=== PATIENT | male | born 2000 | race Hispanic/Latino ===

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

== ENCOUNTER 2021-01-25 17:32 | Emergency (ER) | payer SELFPAY ==
[~2021-01-25] VITALS: Ht 190.5 cm; Wt 100.0 kg
[2021-01-25 18:22] LABS: MEAN CORPUSCULAR HGB 27.9 pG CALC (26.0-32.0); MEAN CORPUSCULAR HGB CONC 33.1 g/dL CAL (32.0-36.0); NEUT# 3.54 thou/uL (1.82-7.42); RED BLOOD COUNT 5.31 mill/uL (4.70-6.10); RED CELL DISTRI WIDTH 12.8 % (11.5-15.5)
[2021-01-25 18:24] LABS: HEMATOCRIT 44.7 % (39.0-50.0); HEMOGLOBIN 14.8 g/dl (14.0-18.0); MEAN CELL VOLUME 84.2 fL CALC (80.0-100.0)
[2021-01-25 18:48] LABS: URINE BILIRUBIN - DIPSTICK NEGATIVE (NEGATIVE); URINE BLOOD DIPSTICK NEGATIVE (NEGATIVE); URINE COLOR YELLOW; URINE GLUCOSE - DIPSTICK NEGATIVE (NEGATIVE); URINE KETONE NEGATIVE (NEGATIVE); URINE LEUK ESTERASE NEGATIVE (NEGATIVE); URINE PH 5.5 (4.5-8.0); URINE PROTEIN - DIPSTICK NEGATIVE (NEG-TRACE); URINE UROBILINOGEN - DIPSTICK 0.2 E.U./dL (0.2)
[2021-01-25 18:48] LABS: ALBUMIN 4.5 g/dL (3.2-5.0); ALKALINE PHOSPHATASE 98 u/l (38-126); ANION GAP 15 (6-22 (CALC)); BILIRUBIN, TOTAL 0.3 mg/dL (0.0-1.4); BUN 9 mg/dL (9-20); BUN/CREATININE RATIO 15 (12-20 (CALC)); CARBON DIOXIDE 24 mmol/l (22-30); CHLORIDE 107 mmol/l (95-108); CREATININE 0.6 mg/dL (0.7-1.3); ETHYL ALCOHOL 177 mg/dl (0-30); GFR > 60 ML/MIN (>=60 (CALC)); GFR FOR AFR.AMER. > 60 ML/MIN (>=60 (CALC)); POTASSIUM 4.2 mmol/l (3.5-5.1); SGOT/AST 26 u/l (17-59); SODIUM 141 mmol/l (137-146); TOTAL PROTEIN 8.1 g/dL (6.3-8.2)
[2021-01-25 18:49] LABS: URINE NITRITE - DIPSTICK NEGATIVE (Negative)
[2021-01-25 20:00] VITALS: BP 126/76
== END 2021-01-25 20:00 | disposition designated cancer center or children's hospital (05) | DRG 605 ==
LOC: ED 17:32
PROVIDERS: Emergency Medicine
DX: S51.812A Laceration without foreign body of left forearm, initial encounter (principal); S71.112A Laceration without foreign body, left thigh, initial encounter; F32.9 Major depressive disorder, single episode, unspecified; X78.1XXA Intentional self-harm by knife, initial encounter; Y92.009 Unspecified place in unspecified non-institutional (private) residence as the place of occurrence of the external cause; Z91.5 Personal history of self-harm

== ENCOUNTER 2024-03-19 10:12 | Emergency (ER) | payer SELFPAY ==
[~2024-03-19] VITALS: Ht 195.6 cm; Wt 102.0 kg
[2024-03-19] VITALS (7 sets, daily range): BP systolic 120–135; BP diastolic 74–93
[2024-03-19] MEDS ORDERED: LIDOcaine HCl 1% (Local Anesth.) 20 ML VIAL STI STA (10:37)
[2024-03-19] MEDS ORDERED: POVIDONE IODINE 0.5 OZ/BTL TOP ONE (10:40)
[2024-03-19] MEDS ORDERED: Diph, Acellular Pertussis, Tet 0.5 ML/VIAL (Tdap) SDV IM ONE (11:35)
[2024-03-19] MEDS ORDERED: CEPHALEXIN500 M1 PO (11:58)
== END 2024-03-19 12:00 | disposition home or self-care (01) | DRG 914 ==
LOC: ED 10:12
PROC: 0JCR3ZZ Extirpation of Matter from Left Foot Subcutaneous Tissue and Fascia, Percutaneous Approach (ICD-10-PCS; principal; 2024-03-19)
DX: S91.342A Puncture wound with foreign body, left foot, initial encounter (principal); W22.8XXA Striking against or struck by other objects, initial encounter; F32.A Depression, unspecified

== ENCOUNTER 2024-10-22 12:26 | Emergency (ER) | payer SELFPAY ==
[~2024-10-22] VITALS: Ht 195.6 cm; Wt 104.3 kg
[~2024-10-22 12:26] MED LIST: CEPHALEXIN500 M1 PO
[2024-10-22 12:39] VITALS: BP 132/81
[2024-10-22 12:45] VITALS: BP 140/94
[2024-10-22] MEDS ORDERED: NAPROXEN500 MG PO (12:47)
[2024-10-22 12:56] VITALS: BP 132/81
== END 2024-10-22 13:01 | disposition home or self-care (01) | DRG 563 ==
LOC: ED 12:26
PROC: 2W3EX1Z Immobilization of Right Hand using Splint (ICD-10-PCS; principal; 2024-10-22)
DX: S62.306A Unspecified fracture of fifth metacarpal bone, right hand, initial encounter for closed fracture (principal); F17.200 Nicotine dependence, unspecified, uncomplicated; W22.09XA Striking against other stationary object, initial encounter

== ENCOUNTER 2024-11-14 18:10 | Emergency (ER) | payer SELFPAY ==
[~2024-11-14] VITALS: Ht 195.6 cm; Wt 95.0 kg
[~2024-11-14 18:10] MED LIST changes: +NAPROXEN500 MG PO
[2024-11-14] MEDS ORDERED: KEPPRA500 M2 PO (18:18)
[2024-11-14] MEDS ORDERED: NAPROXEN 250 MG/TAB PO ONE (18:25)
[2024-11-14 19:14] VITALS: BP 136/86
== END 2024-11-14 19:15 | disposition home or self-care (01) | DRG 563 ==
LOC: ED 18:10
DX: S63.92XA Sprain of unspecified part of left wrist and hand, initial encounter (principal); F32.A Depression, unspecified; W22.09XA Striking against other stationary object, initial encounter; Y92.009 Unspecified place in unspecified non-institutional (private) residence as the place of occurrence of the external cause; Z72.0 Tobacco use